=== PATIENT | female | born 1940 | race African-American/Black ===

== ENCOUNTER 2018-09-19 10:12 | Observation (INO) | payer MEDICARE ==
[2018-09-19] MEDS ORDERED: Naloxone HCl 0.4 mg/ml Vial ONE ×2 (11:02→12:12)
[2018-09-19 13:55] LABS: ALT (SGPT) 9 U/L (8-55); AST (SGOT) 10 U/L (5-34); Albumin 3.8 g/dL (3.4-4.8); Alkaline Phosphatase 62 U/L (40-150); Anion Gap 11 mmol/L (10-20); BUN (Urea Nitrogen) 24 mg/dL (9.8-20.1); Bilirubin, Total 0.3 mg/dL (0.2-1.2); Calc. Creatinine Clearance 0 mL/min (70-130); Calcium 8.8 mg/dL (7.8-10.44); Carbon Dioxide 26 mmol/L (23-31); Chloride 106 mmol/L (98-107); Estimated GFR-MDRD 64; Globulin 2.4 g/dL (2.4-3.5); Glucose 107 mg/dL (83-110); Potassium 3.9 mmol/L (3.5-5.1); Protein, Total 6.2 g/dL (6.0-8.3); Sodium 139 mmol/L (136-145)
[2018-09-19 13:57] LABS: Eosinophils 1 % (0-10); Hemoglobin 11.1 g/dL (12.0-16.0); Lymphocytes 34 % (21-51); MDiff Complete? YES; Mean Corpuscular HGB CONC 34.5 g/dL (32.0-36.0); Mean Corpuscular Volume 98.7 fL (78.0-98.0); Mean Platelet Volume 6.7 fL (7.4-10.4); Monocytes 9 % (0-10); Neutrophil 56 % (42-75); Platelet Count 210 thou/uL (130-400); RBC Distribution Width 11.5 % (11.5-14.5); Red Blood Cell (RBC) Count 3.27 mill/uL (4.20-5.40); Small Platelets SLIGHT; White Blood Cell (WBC) Count 5.6 thou/uL (4.8-10.8)
[2018-09-19] MEDS ORDERED: Ondansetron ODT 4 MG TAB SL PRN (14:43)
[2018-09-19] MEDS ORDERED: Ondansetron PF 4 MG/2 ML Vial IVP PRN (14:43)
[2018-09-19] MEDS ORDERED: Acetaminophen 325 MG TAB PO PRN (14:43)
[2018-09-19] MEDS ORDERED: Dextrose 5 %-0.45 % NaCl 1,000 ML IV SCH (14:45)
[2018-09-19 15:18] VITALS: BMI 32.2
[2018-09-19] MEDS ORDERED: HYDROcodone/Acetaminophen 10/325 mg Tablet PO PRN ×2 (17:09→22:46)
[2018-09-19] MEDS ORDERED: Amitriptyline HCl 10 MG TAB PO SCH (21:15)
[2018-09-19] MEDS ORDERED: Aspirin 81 mg Enteric Coated Tablet PO SCH (21:15)
[2018-09-19] MEDS ORDERED: Gabapentin 300 MG CAP PO SCH (21:15)
[2018-09-20 04:09] VITALS: TEMP 98.2
[2018-09-20 07:56] VITALS: BP 109/57
[2018-09-20] MEDS ORDERED: Cholecalciferol (Vitamin D3) 400 UNITS TAB PO SCH (09:00)
[2018-09-20] MEDS ORDERED: Calcium Carbonate + Vit D 1 TAB PO SCH (09:00)
[2018-09-20] MEDS ORDERED: Gabapentin 300 MG CAP PO SCH ×2 (09:00)
[2018-09-20] MEDS ORDERED: Fish Oil 1,000 MG CAP PO SCH (09:00)
[2018-09-20] MEDS ORDERED: Aspirin 81 mg Enteric Coated Tablet PO SCH ×2 (09:00→21:00)
[2018-09-20] MEDS ORDERED: Cyanocobalamin (Vitamin B-12) 1,000 MCG TAB PO SCH (09:00)
[2018-09-20] MEDS ORDERED: Amitriptyline HCl 10 MG TAB PO SCH ×2 (21:00)
--- NOTE | 2018-09-23 13:31 | SS ---
DATE OF ADMISSION: 09/19/2018 DATE OF DISCHARGE: 09/20/2018 ADMISSION DIAGNOSIS: Near syncope. Date of admission to observation status: September 19, 2018. The patient's date of discharge from observation status: September 20, 2018. DISCHARGE DIAGNOSIS: Status post hypotension secondary to medication. HISTORY OF PRESENT ILLNESS: The patient is a 78-year-old female, who on the day presenting to the emergency room, she accidently took one of her p.r.n. clonidine 0.1 mg with her usual a.m. medications instead of hydralazine. After taking the medication, she felt a near syncopal episode, lightheaded, dizzy, and was afraid that she would fall. It was worse when standing up or ambulating and did not improve. Thus, she presented to the emergency room. PAST MEDICAL HISTORY: Significant for vertigo, irritable bowel disease, hypertension, and fibromyalgia. PAST SURGICAL HISTORY: Includes appendectomy, cholecystectomy, hysterectomy, tubal ligation, and spinal fusion of the neck as well as plates to the head status post trauma. SOCIAL HISTORY: The patient denies any social drug use. No smoking or excessive alcohol intake. She is independent in all activities of daily living, and she lives with some of her grown children in the area. ALLERGIES: REPORTS NO KNOWN DRUG ALLERGIES. CURRENT MEDICATIONS: Include: 1. Diovan 160 mg b.i.d. 2. Hydralazine 50 mg t.i.d. 3. Gabapentin 300 mg b.i.d. 4. Amitriptyline 10 mg at bedtime. 5. Clonidine 0.1 mg p.r.n. hypertension, elevated blood pressure greater than 160 systolic or 100 diastolic. 6. Aspirin 81 mg daily. REVIEW OF SYSTEMS: Prior to taking her medication, the patient denies any nausea, vomiting, or diarrhea. No fevers, chills, or night sweats. No chest pain or shortness of breath. No previous syncopal episodes. The patient reports appetite is good. Denies any recent weight loss nor weight gain. No recent rashes reported. No recent diarrhea, loose stools, or weight loss. No pain above her baseline is reported as well. PHYSICAL EXAMINATION: VITAL SIGNS: On admission, the patient was found to be hypotensive with the systolic blood pressure of 90/49 with the pulse in the 60s. The patient reports the pulse is usually in the 50s to 60s at her baseline. O2 saturation was 100% on room air. GENERAL: female, in no apparent distress. HEENT: Atraumatic and normocephalic. Extraocular movements are intact. Pupils are equal, round, and reactive to light and accommodation. Oropharynx, mucous membranes are moist. No exudates, discharge, or lesions. NECK: Supple. No masses are palpated. CHEST: Clear to auscultation bilaterally. HEART: Regular rate and rhythm. ABDOMEN: Soft, nontender, and nondistended. No masses are palpated. EXTREMITIES: Show no cyanosis, clubbing, or edema. BRIEF SUMMARY OF HOSPITAL COURSE: The patient was admitted to observation from the emergency room due to her hypotension. Her blood pressure medications were held, and she was given 1 L normal saline bolus followed by IV fluids throughout her observation stay. The following morning, when I evaluated the patient, her blood pressure had returned back to the normal range with systolic in the 120s, diastolic in the 60s. Heart rate was in the 50s to low 60s, which the patient reported as her baseline. She was completely asymptomatic, was able to ambulate and get out of her bed and to the bathroom and walk down the halls without syncope nor near syncopal spells. I discussed the plan with the patient in detail. She understood how she accidently took her clonidine and has plans to change her placement of her medications, so she would not get confused with clonidine in the future. She has a home blood pressure cuff, which she will monitor as well. discharged to home. DISCHARGE MEDICATIONS: The patient will continue all her routine medications and will not take her clonidine. FOLLOWUP: She will follow up with her primary care physician, who is in the [facility] area if she has any further questions or concerns. She is instructed to return to the emergency room if she has any recurrence of her near syncope. DIET AND ACTIVITY: Her diet and activity will be otherwise normal. Job ID: [id number]
== END 2018-09-20 09:20 | disposition home or self-care (01) ==
LOC: BURERS 10:12 → BURMED 13:23
PROVIDERS: ADMIT Family Medicine; ATTEND Family Medicine
DX: I95.2 Hypotension due to drugs (principal); T46.5X5A Adverse effect of other antihypertensive drugs, initial encounter; K58.9 Irritable bowel syndrome, unspecified; I10 Essential (primary) hypertension; M79.7 Fibromyalgia; Z79.82 Long term (current) use of aspirin; Z79.899 Other long term (current) drug therapy
CPT/HCPCS: 80053; 84484; 85025; 93005; 96361; 96374; 96376; G0378; J2310

== ENCOUNTER 2019-04-25 08:31 | Emergency (ER) | payer MEDICARE ==
--- NOTE | 2019-04-25 15:26 | CT ---
CT BRAIN WITHOUT CONTRAST: Date: 04/25/19 The ventricles are normal in size for age. There is no shift. No intracranial bleeding, mass, or sign of acute stroke found. No subarachnoid bleeding. Basal ganglia calcifications are present bilaterall y. The bony structures are unremarkable. The visible paranasal sinuses are clear. IMPRESSION: No acute intracranial finding. POS: HOME
== END 2019-04-25 09:25 | disposition home or self-care (01) ==
LOC: BURERS 08:31
DX: R51 Headache (principal); G89.29 Other chronic pain; I10 Essential (primary) hypertension; Z79.899 Other long term (current) drug therapy
CPT/HCPCS: 70450